=== PATIENT | male | born 1980 | race Caucasian/White ===

== ENCOUNTER 2016-11-01 02:41 | Emergency (ER) | payer OTHER ==
[~2016-11-01] VITALS: Ht 154.9 cm; Wt 69.4 kg
[~2016-11-01 02:41] MED LIST: CIPRO500 MG PO; CIPROFLOXACIN500 M1 PO; FLAGYL500 MG PO; NORCO 5-325 TA1 EACH PO
[2016-11-01] MEDS ORDERED: NAPROSYN500 MG PO (02:50)
[2016-11-01] MEDS ORDERED: BENADRYL25 MG PO (04:59)
[2016-11-01] MEDS ORDERED: COMPAZINE10 M2 PO (04:59)
[2016-11-01 05:45] VITALS: BP 127/50
== END 2016-11-01 05:45 | disposition home or self-care (01) ==
LOC: ER 02:41
DX: R51 Headache (principal); R10.13 Epigastric pain; J45.909 Unspecified asthma, uncomplicated; Z88.0 Allergy status to penicillin